=== PATIENT | female | born 1985 | race African-American/Black ===

== ENCOUNTER 2024-12-05 07:23 | Emergency (ER) | payer SELFPAY ==
[2024-12-05] MEDS ORDERED: Bupivacaine PF 0.5% 30 ML VIAL ONE (07:39)
[2024-12-05] MEDS ORDERED: Ketorolac Tromethamine 30 MG (1 mL) VIAL ONE (07:47)
== END 2024-12-05 08:07 | disposition home or self-care (01) ==
LOC: CSHERS 07:23
DX: K04.7 Periapical abscess without sinus (principal); K08.89 Other specified disorders of teeth and supporting structures; I10 Essential (primary) hypertension; E11.9 Type 2 diabetes mellitus without complications
CPT/HCPCS: 64400; 96372; J0665; J1885